=== PATIENT | male | born 1995 | race Caucasian/White ===

== ENCOUNTER 2017-11-12 21:51 | Emergency (ER) | payer MEDICAID ==
[~2017-11-12] VITALS: Ht 172.7 cm; Wt 68.1 kg
[2017-11-12] MEDS ORDERED: acetaminophen 325mg tablet PO STA (22:14)
[2017-11-12] MEDS ORDERED: ketorolac trometh. 30mg/ml inj. IM ONE (22:15)
[2017-11-12] MEDS ORDERED: normal saline 1000ML IV soln IV ONE (22:15)
[2017-11-12 23:43] VITALS: BP 126/63
== END 2017-11-12 23:47 | disposition home or self-care (01) ==
LOC: ER 21:52
DX: B34.9 Viral infection, unspecified (principal); I10 Essential (primary) hypertension; F12.10 Cannabis abuse, uncomplicated; F11.10 Opioid abuse, uncomplicated; Z59.0 Homelessness
CPT/HCPCS: 87502; 87503; 93005; 96360; 96372; 99285; J1885; J7030

== ENCOUNTER 2017-11-15 09:59 | Emergency (ER) | payer MEDICAID ==
[~2017-11-15] VITALS: Ht 172.7 cm; Wt 63.3 kg
[2017-11-15 10:17] VITALS: BP 131/63
[2017-11-15] MEDS ORDERED: SULF1TAB49 PO (10:35)
== END 2017-11-15 10:45 | disposition home or self-care (01) ==
LOC: ER 10:00
DX: T81.4XXA Infection following a procedure, initial encounter (principal); L02.511 Cutaneous abscess of right hand; I10 Essential (primary) hypertension; F17.200 Nicotine dependence, unspecified, uncomplicated; F12.10 Cannabis abuse, uncomplicated; F15.10 Other stimulant abuse, uncomplicated; Z59.0 Homelessness
CPT/HCPCS: 99283